=== PATIENT | male | born 1985 | race Caucasian/White ===

== ENCOUNTER 2024-02-17 08:08 | Outpatient (CLI) | payer OTHER ==
--- NOTE | 2024-02-17 15:04 | MRI Report ---
PROCEDURE: Ankle RT WO INDICATIONS: RIGHT ANKLE PAIN TECHNIQUE: Noncontrast sagittal T1 spin echo and T2 fast spin echo with fat saturation, axial proton density fas t spin echo and T2 fast spin echo with fat saturation, coronal T1 spin echo and T2 fast spin echo wit h fat saturation through the ankle/hindfoot. COMPARISON: None. FINDINGS: Image quality: Excellent. Bones and joints: Extensive osteochondral injuries involving weight-bearing portion of talar dome is seen measures up to 1.4 x 1.1 x 0.7 cm in size. Moderate surrounding edema is noted. Small osteochond ral lesion involving posterior inferior aspect of medial talus adjacent to subtalar joint is also not ed measures 5 mm in size. Mild to moderate tibiotalar joint osteoarthritic changes are seen. Small shaver bcortical cystic area involving tip of the medial malleolus adjacent to its articulation with talus. No acute fracture or dislocation. Small tibiotalar joint effusion is noted, and gross loose bodies. Medial structures: The posterior tibialis, flexor digitorum longus, and flexor hallucis longus tendo ns are intact. The posterior tibial neurovascular bundle appears normal within the tarsal tunnel, wi thout extrinsic mass effect. The deep layer (anterior and posterior tibiotalar ligaments) and superf icial layer (tibionavicular, tibiospring, and tibiocalcaneal ligaments) of the deltoid ligament appea r normal. The spring ligament components (superomedial calcaneonavicular, medioplantar oblique calca neonavicular, and inferoplantar longitudinal ligaments) are intact. Lateral structures: The anterior talofibular, calcaneofibular, and posterior talofibular ligaments a ppear intact. More superiorly, the anterior and posterior tibiofibular ligaments appear normal, as i s the intermalleolar ligament. The tibiofibular syndesmosis is normal in width at 2 mm or less. The peroneus brevis tendon is intact. Mildly thickened the peroneus longus tendon at the level of mid to distal calcaneus and calcaneocuboid joint is seen. Adjacent bony peroneal tubercle and retrotrochlea r prominence are normal in size. The sinus tarsi demonstrates normal fatty signal, without edema, fi brosis, or cyst formation. Visualized sinus tarsi components (cervical ligament, interosseous taloca lcaneal ligament, roots of the inferior extensor retinaculum) appear normal. Anterior structures: The tibialis anterior, extensor hallucis longus, and extensor digitorum longus tendons appear intact. Posterior and plantar structures: Achilles tendon is intact. Medial and lateral bands of the planta r fascia are of normal thickness. No abductor digiti quinti muscle atrophy to suggest Garcia neuropa thy. IMPRESSION: 1. 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 Extensive osteochondral injuries involving weigh t-bearing portion of talar dome as well as posterior inferior aspect of medial talus adjacent to subt alar joint. Likely osteochondral injury involving tip of medial malleolus. No acute fracture or dislo cation. Small joint effusion, no loose bodies. 2. Peroneus tendinosis at the level of mid to distal calcaneus and calcaneocuboid joint. Rest of the ankle tendons are intact. 3. Medial and lateral ankle ligaments are intact. Reviewed by: Gary Hancock MD on 02/17/2024 3:03 PM PDT Approved by: Gary Hancock MD on 02/17/2024 3:03 PM PDT Station ID: [id number]
== END 2024-02-17 08:09 | disposition home or self-care (01) ==
LOC: DI 08:08
PROVIDERS: ATTEND Nurse Practitioner Family
DX: M19.071 Primary osteoarthritis, right ankle and foot (principal); S99.911A Unspecified injury of right ankle, initial encounter; M67.971 Unspecified disorder of synovium and tendon, right ankle and foot

== ENCOUNTER 2024-04-15 10:47 | Outpatient (CLI) | payer OTHER ==
--- NOTE | 2024-04-15 19:07 | XRAY Report ---
PROCEDURE: Ankle 3+V RT INDICATIONS: PAIN IN ANKLE TECHNIQUE: 3 views of the ankle were acquired. COMPARISON: 02/17/2024. FINDINGS: Bones: No fractures or dislocations. Ankle mortise is normally aligned. No suspicious bony lesions . Soft tissues: No tibiotalar joint effusion. Achilles tendon appears normal. IMPRESSION: No acute bony abnormality. If pain persists with conservative management, consider repeat x-ray in 10 -14 days or cross-sectional imaging. Reviewed by: Kd Bey MD on 04/15/2024 7:05 PM PDT Approved by: Kd Bey MD on 04/15/2024 7:05 PM PDT Station ID: [id number]
== END 2024-04-15 10:48 | disposition home or self-care (01) ==
LOC: DI 10:47
PROVIDERS: ATTEND Physician Assistant Surgical
DX: M25.571 Pain in right ankle and joints of right foot (principal)